=== PATIENT | female | born 1965 | race Caucasian/White ===

== ENCOUNTER 2023-01-28 07:03 | Day surgery (SDC) | payer BC ==
[~2023-01-28] VITALS: Ht 162.6 cm; Wt 76.2 kg
[~2023-01-28 07:03] MED LIST: BSS IRRIG/VANCO(10MG)/TOBRA(5MG)/EPINEPH(1:1000-0.5CC)500ML BAG-ORONLY IR ONE; CALC600T60 PO; CYCLOPENTOLATE 1% OPHTH SOLN 2ML BTL OD SCH; LIDOCAINE 3.5 % 1ML OPHTH TOPICAL GEL OU ONE; LOSA100T45 PO; OFLOXACIN 0.3 % (OCUFLOX) OPTH SOL 5ML OD ONE; OMEP1CAP73 PO; PHENYLEPHRINE 10% OPHTH SOL 5ML OD PRN; PHENYLEPHRINE 2.5% OPHTH SOL 2ML OD SCH; ROSU10TA6 PO; TROPICAMIDE 1% OPHTH SOLN 15ML OD SCH; VITA100093 PO; VITMTA PO
[2023-01-28] MEDS ORDERED: CEFUROXIME 1MG/0.1ML INTRACAMERAL INJ As Ordered ONE (07:06)
[2023-01-28] MEDS ORDERED: LIDOCAINE 1% SDV 5ML VIAL As Ordered ONE (07:06)
[2023-01-28] MEDS ORDERED: fentaNYL 100 MCG/2 ML INJECTION As Ordered ONE (08:32)
[2023-01-28] MEDS ORDERED: MIDAZOLAM INJ 2MG/2ML VIAL As Ordered ONE (08:33)
[2023-01-28 08:46] VITALS: BP 170/83
== END 2023-01-28 09:03 | disposition home or self-care (01) ==
LOC: M SDC 07:03
PROVIDERS: ATTEND Ophthalmology
DX: H25.11 Age-related nuclear cataract, right eye (principal); I10 Essential (primary) hypertension; E78.5 Hyperlipidemia, unspecified; E11.9 Type 2 diabetes mellitus without complications; K21.9 Gastro-esophageal reflux disease without esophagitis; Z90.710 Acquired absence of both cervix and uterus; Z79.899 Other long term (current) drug therapy
CPT/HCPCS: 66984; 92015; J0697; J2250; J3010

== ENCOUNTER 2023-03-04 07:17 | Day surgery (SDC) | payer BC ==
[~2023-03-04] VITALS: Ht 162.6 cm; Wt 74.4 kg
[~2023-03-04 07:17] MED LIST changes: +CEFUROXIME 1MG/0.1ML INTRACAMERAL INJ As Ordered ONE; +CETI10CA2 PO; -CYCLOPENTOLATE 1% OPHTH SOLN 2ML BTL OD SCH; +CYCLOPENTOLATE 1% OPHTH SOLN 2ML BTL OS SCH; +LEVOTAB10 PO; +LIDOCAINE 1% SDV 5ML VIAL As Ordered ONE; -OFLOXACIN 0.3 % (OCUFLOX) OPTH SOL 5ML OD ONE; +OFLOXACIN 0.3 % (OCUFLOX) OPTH SOL 5ML OS ONE; -PHENYLEPHRINE 10% OPHTH SOL 5ML OD PRN; +PHENYLEPHRINE 10% OPHTH SOL 5ML OS PRN; -PHENYLEPHRINE 2.5% OPHTH SOL 2ML OD SCH; +PHENYLEPHRINE 2.5% OPHTH SOL 2ML OS SCH; -TROPICAMIDE 1% OPHTH SOLN 15ML OD SCH; +TROPICAMIDE 1% OPHTH SOLN 15ML OS SCH
[2023-03-04] MEDS ORDERED: MIDAZOLAM 5MG/ML 1ML VIAL As Ordered ONE (07:19)
[2023-03-04 09:05] VITALS: BP 155/88
== END 2023-03-04 09:15 | disposition home or self-care (01) ==
LOC: M SDC 07:17
PROVIDERS: ATTEND Ophthalmology
DX: H25.12 Age-related nuclear cataract, left eye (principal); E11.9 Type 2 diabetes mellitus without complications; I10 Essential (primary) hypertension; Z79.899 Other long term (current) drug therapy; E78.5 Hyperlipidemia, unspecified; K21.9 Gastro-esophageal reflux disease without esophagitis
CPT/HCPCS: 66984; 92015; J0697; J2250; V2632